=== PATIENT | male | born 1935 ===

== ENCOUNTER 2019-03-06 21:17 | Emergency (ER) | payer BC ==
--- NOTE | 2019-03-06 22:04 | Emergency Department Record ---
History of Present Illness - General Chief Complaint: Shortness of breath Stated Complaint: JAXON Time Seen by Provider: 03/06/19 21:40 Source: Patient Mode of Arrival: Ambulatory Limitations: No limitations - History of Present Illness Initial Comments: The patient is here due to developing dyspnea and sweating after lying down and going to bed at 8pm tonight 2 hours ago. He denied any Cp or back pain with it. The patient then did get up from bed and his symptoms did resolve. He presently feels well but due to the symptoms wanted to get checked out in the ER. The patient does have a hx of CAD and Renal Failure and has dialysis on MWF. MD Complaint: Shortness of breath Onset/Timin -: Hour(s) Consistency: Intermittent Improves With: Upright position Worsens With: Lying flat Known History Of: Diabetes Context: Other Associated Symptoms: Denies other symptoms Treatments Prior to Arrival: None - Related Data Home Medications Medication Instructions Recorded Confirmed Last Taken Clopidogrel Bisulfate [Clopidogrel] 75 mg PO DAILY 03/06/19 03/06/19 03/06/19 Losartan Potassium 25 mg PO DAILY 03/06/19 03/06/19 03/06/19 Allergies Allergy/AdvReac Type Severity Reaction Status Date / Time sulfamethoxazole Allergy RASH Verified 09/18/17 23:04 [From Bactrim] trimethoprim [From Bactrim] Allergy RASH Verified 09/18/17 23:04 Travel Screening - Travel/Exposure Within Last 30 Days Have you traveled within the last 30 days?: No - Travel Symptoms Symptom Screening: None Review of Systems Constitutional: Denies: Chills, Fever Eyes: Denies: Eye discharge ENT: Denies: Congestion Respiratory: Denies: Cough, Dyspnea Past Medical History - SOCIAL HISTORY Smoking Status: Never smoker Alcohol Use: None Drug Use: None - RESPIRATORY Hx Respiratory Disorders: No - CARDIOVASCULAR Hx Cardio Disorders: Yes Hx Heart Attack: Yes Hx Hypertension: Yes - NEURO Hx Neuro Disorders: No Hx Brain Tumor: No Hx CVA: No Hx Dementia: No Hx Dizziness: No Hx Headaches: No Hx Neuropathy: No Hx Parkinson's Disease: No Hx Seizures: No Hx Speech Problem: No Hx TIA: No - GI Hx GI Disorders: No Hx Abdominal Pain: No Hx Celiac Disease: No Hx Crohn's Disease: No Hx Diverticulitis: No Hx GI Bleed: No Hx Reflux: No Hx Hepatitis/Jaundice: No Hx Hiatal Hernia: No Hx Irritable Bowel: No Hx Liver Disease: No Hx Nausea/Vomiting: No Hx Obstructive Bowel: No Hx Pancreatitis: No Hx Rectal Bleeding: No Hx Ulcer: No Hx Wt Loss/Wt Gain: No Hx of Polyps: No - Hx Genitourinary Disorders: Yes Hx Kidney Stones: Yes - ENDOCRINE Hx Endocrine Disorders: Yes Hx Diabetes: Yes - MUSCULOSKELETAL Hx Musculoskeletal Disorders: No Hx Arthritis: No Hx Back Injury: No Hx Fibromyalgia: No Hx Gout: No Hx Musculoskeletal Disease: No Hx Osteoporosis: No - PSYCH Hx Psych Problems: No Hx Anxiety: No Hx Behavior Problems: No Hx Depression: No Hx Emotional Abuse: No Hx Sexual Abuse: No Hx Suicide Attempt: No - HEMATOLOGY/ONCOLOGY Hx Hematology/Oncology Disorders: Yes Hx Cancer: Yes Comment:: non hodgekins lymphoma Family Medical History Any Significant Family History?: Yes Hx Cancer: Father, Mother Hx Heart Disease: Father, Mother, Brother/Sister Physical Exam - General General Appearance: Alert, Oriented x3, Cooperative, No acute distress - Head Head exam: Atraumatic, Normocephalic, Normal inspection - Eye Eye exam: Normal appearance, PERRL - Neck Neck exam: Normal inspection, Full ROM. negative: Tenderness - Respiratory Respiratory exam: Decreased breath sounds. negative: Normal lung sounds bilaterally, Rales, Respiratory distress, Stridor, Wheezes - Cardiovascular Cardiovascular Exam: Regular rate, Normal rhythm, Systolic murmur (2/6 RONNIE) - GI/Abdominal GI/Abdominal exam: Soft, Normal bowel sounds. negative: Tenderness - Extremities Extremities exam: Normal inspection, Full ROM, Normal capillary refill. negative: Tenderness - Neurological Neurological exam: Alert, Normal gait. negative: Abnormal gait, Motor sensory deficit Course Vital Signs 03/06/19 21:29 Temperature 98.1 F Pulse Rate 84 Respiratory 24 Rate Blood Pressure 201/95 Pulse Ox 95 - Reevaluation(s) Reevaluation #1: I did explain to the patient the need for transfer to [facility] due to the high K+ and CHF. The patient states he feels well sitting up and has no JAXON and will be at dialysis in 5 hours where they can take care of all of that. I then did explain to him that the risks of leaving are that the patient could go home and have an MS, worsening heart failure, stroke, disability and . The patient and fully understand the risks and accept the risks. He understands we cannot be held liable for NOT admitting and dialysing him early. He also was instructed to see his PCP [facility]. 03/06/19 23:02 Medical Decision Making - Data Complexity MDM Data: Labs Ordered and/or Reviewed, X-Ray Ordered and/or Reviewed, EKG Ordered and/or Reviewed - Lab Data Result diagrams: 03/06/19 22:13 03/06/19 22:13 - EKG Data -: EKG Interpreted by Me EKG: No Acute Changes, Unchanged From Previous - Radiology Data -: Radiology Exam Interpreted by Myself (CXR: Mild CMG and CHF.) Disposition Disposition: Discharge Clinical Impression: CRF (chronic renal failure) Qualifiers: Chronic kidney disease stage: unspecified stage Qualified Code(s): N18.9 - Chronic kidney disease, unspecified Disposition: Against Medical Advice Condition: (2) Stable Instructions: Dyspnea (ED) Additional Instructions: Please continue your regular medicines and please be sure to present early to dialysis in the morning. Return to the ER for any worsening symptoms. Forms: Patient Portal Access Time of Disposition: 23:01 Quality - Quality Measures Quality Measures: N/A - Blood Pressure Screening View Details: Yes Does Patient Have Any of the Following: Active Dx of HTN Blood Pressure Classification: Hypertensive Reading Systolic Measurement: 201 Diastolic Measurement: 95 Screening for High Blood Pressure: Patient Exclusion, Hx of HTN [[id number]]
[2019-03-06 22:26] LABS: ABSOLUTE NEUTROPHIL COUNT 6.44; BASO % 0.8 % (0-6); GRAN % 56.5 % (47-80); HEMATOCRIT 37.1 % (42.0-52.0); HEMOGLOBIN 11.6 gm/dl (14.0-18.0); LYMPH % 26.9 % (16-45); MEAN CELL VOLUME 99.2 fl (81-97); MEAN CORPUSCULAR HGB CONC 31.3 g/dl (32-36); MONO % 10.8 % (0-9); PLATELET COUNT 201 K/uL (130-400); RED BLOOD COUNT 3.74 M/uL (4.40-5.70); RED CELL DISTRIBUTION WIDTH 15.1 % (11.5-14.5); WHITE BLOOD COUNT W/O DIFF 11.4 K/uL (4.2-12.2)
[2019-03-06 22:34] LABS: BILIRUBIN,TOTAL 0.4 mg/dL (0.2-1.0); CREATININE 5.3 mg/dL (0.7-1.2)
[2019-03-06 22:35] LABS: TOTAL PROTEIN 6.9 g/dL (6.6-8.7)
[2019-03-06 22:37] LABS: PARTIAL THROMBOPLASTIN TIME 25.3 SECONDS (24.5-39.1)
[2019-03-06 22:39] LABS: ALB/GLOB RATIO 1.9 (1.1-1.8); ALBUMIN 4.5 g/dL (4.0-5.0)
[2019-03-06 22:41] LABS: CKMB 6.7 ng/mL (<6.73)
[2019-03-06 22:49] LABS: CKMB RELATIVE INDEX 2.93 % (0-4)
--- NOTE | 2019-03-08 16:51 | RADIOLOGY REPORT ---
EXAM: CHEST 2 VIEWS HISTORY: DIFFICULTY IN BREATHING. TECHNIQUE: Upright PA and lateral views of the chest. COMPARISON: Two-view chest radiographic examination dated 09/18/2017. FINDINGS: The heart is not enlarged. No gross pulmonary venous hypertension is seen. Mild biapical pleural and parenchymal scarring. Reticular opacity prominence is noted within each lung base. Diagnostic considerations include; chronic interstitial changes, interstitial edema, and atypical pneumonitis. Atherosclerotic calcification. IMPRESSION: JOB NUMBER: [id number] [facility]
== END 2019-03-06 23:10 | disposition left against medical advice (07) ==
LOC: ER 21:17
DX: E11.22 Type 2 diabetes mellitus with diabetic chronic kidney disease (principal); I13.2 Hypertensive heart and chronic kidney disease with heart failure and with stage 5 chronic kidney disease, or end stage renal disease; N18.6 End stage renal disease; E87.5 Hyperkalemia; I50.9 Heart failure, unspecified; R06.00 Dyspnea, unspecified; Z99.2 Dependence on renal dialysis; Z79.4 Long term (current) use of insulin
CPT/HCPCS: 71046; 80053; 82550; 82553; 84484; 85025; 85610; 85730; 99285